=== PATIENT | male | born 1940 | race Caucasian/White ===

== ENCOUNTER 2019-11-27 12:02 | Day surgery (SDC) | payer MEDICARE ==
[~2019-11-27 12:02] MED LIST: Metoclopramide 10 MG/2 ML SDV IV PRN; Sodium Chloride 0.9% 1,000 ML IV SCH
[2019-11-27] MEDS ORDERED: Propofol 200 MG/20 ML SDV ONE (15:00)
--- NOTE | 2019-11-27 17:53 | OR ---
DATE OF OPERATION: 11/27/2019 SURGEON: Korey Piedra MD PREOPERATIVE DIAGNOSES: Melena and constipation. POSTOPERATIVE DIAGNOSES: Melena and constipation. PROCEDURE: EGD and colonoscopy. ANESTHESIA: MAC. ESTIMATED BLOOD LOSS: Minimal. COMPLICATIONS: None. INDICATION FOR THE PROCEDURE: The patient is a 79-year-old male who for the last month has had dark tarry stools as well as constipation. Last colonoscopy was about 8 years ago, was normal per the patient. No previous EGDs. Otherwise, denies any epigastric pain. Also complaining of severe constipation, however, this is resolved on new medication regimen. DESCRIPTION OF PROCEDURE: Informed consent was obtained from the patient. The patient was taken to the operating room, placed on the table in left lateral decubitus position. Monitored anesthesia care was administered. Esophagogastroscope was then advanced through the mouth into the second portion of the duodenum. Duodenum was normal. Gastric antrum did show some mild gastritis. Biopsy, this was taken for H pylori. Retroflexion performed in the stomach, was also otherwise unremarkable. Distal esophagus was also unremarkable. Esophagogastroscope was then withdrawn. We then turned our attention to the colonoscopy. Digital rectal exam was performed and it was normal. Colonoscope was then advanced through the anus, directed towards the cecum. Cecum was reached and identified by appendiceal orifice and ileocecal valve. Colonoscope was then slowly withdrawn. He did have some moderate, large and small diverticulosis in the sigmoid and descending colon. Did have a few small diverticula throughout the transverse and ascending colon as well. Otherwise, no polyps, no masses, no areas of ischemia or inflammation. No AV malformations identified. The rectum was also otherwise unremarkable. Colonoscope was then withdrawn. FINDINGS: Gastritis and diverticulosis. RECOMMENDATIONS: We will follow up on H pylori results. Otherwise, we would recommend H2 tito or PPI per primary care. We would not recommend any further screening colonoscopies due to age. Otherwise, continue on the current bowel regimen. CARLOS ENRIQUE/KYLIE /[id number] SAMEER
== END 2019-11-27 16:25 | disposition home or self-care (01) ==
LOC: LB.SDS 12:02
PROVIDERS: ATTEND Surgery
DX: K29.50 Unspecified chronic gastritis without bleeding (principal); K57.30 Diverticulosis of large intestine without perforation or abscess without bleeding; K21.9 Gastro-esophageal reflux disease without esophagitis; K31.89 Other diseases of stomach and duodenum; K92.1 Melena; K59.00 Constipation, unspecified; I25.10 Atherosclerotic heart disease of native coronary artery without angina pectoris; K27.9 Peptic ulcer, site unspecified, unspecified as acute or chronic, without hemorrhage or perforation; E83.119 Hemochromatosis, unspecified; Z98.890 Other specified postprocedural states; Z88.0 Allergy status to penicillin; Z79.82 Long term (current) use of aspirin; Z79.899 Other long term (current) drug therapy
CPT/HCPCS: 43239; 43246; 45378; 88305; G0121; J2704; U0002

== ENCOUNTER 2020-11-26 13:42 | Emergency (ER) | payer MEDICARE ==
[2020-11-26] MEDS ORDERED: Sodium Chloride 0.9% 10 ML Syringe FLUSH PRN (14:03)
[2020-11-26] MEDS ORDERED: Aspirin 81 MG Tab.Chew PO ONE (14:04)
--- NOTE | 2020-11-26 14:05 | EDM.PDOC ---
ED HPI GENERAL MEDICAL PROBLEM - General Chief Complaint: General Stated Complaint: DIZZINESS Time Seen by Provider: 11/26/20 14:00 Source of Information: Reports: Patient, EMS History Limitations: Reports: No Limitations - History of Present Illness INITIAL COMMENTS - FREE TEXT/NARRATIVE: patient presented to the ER with a c/o sudden onset of dizziness. Per report, he was using the computer, when he suddenly complained to his that he feels dizzy, and when he tried walking to the bathroom, he felt unsteady,, didn't pass out. No CP, SOB or palpitations. h/o CAD in the remote past so stents placement in 2001. h/o HTN for which he takes HCLZ and lisinopril and ASA 81mg. Upon arrival to the ER, denies CP, but reports mild dizziness still on/off. - Related Data Allergies Allergy/AdvReac Type Severity Reaction Status Date / Time Penicillins Allergy Cannot Verified 11/26/19 14:33 Remember Home Meds: Home Meds Aspirin [Meg Chewable] 81 mg PO DAILY 07/20/16 [History] Isosorbide Mononitrate [Isosorbide Mononitrate ER] 30 mg PO DAILY 07/20/16 [History] Lisinopril 20 mg PO BID 07/20/16 [History] atorvaSTATin Calcium [Atorvastatin Calcium] 40 mg PO QPM 07/20/16 [History] Brimonidine [Alphagan 0.2% Ophth Soln] 1 drop EYEBOTH BID 11/26/19 [History] Latanoprost 1 drop EYEBOTH BEDTIME 11/26/19 [History] Timolol Maleate 1 drop EYEBOTH BID 11/26/19 [History] hydroCHLOROthiazide [Hydrochlorothiazide] 12.5 mg PO DAILY 11/26/19 [History] Past Medical History HEENT History: Reports: Glaucoma, Impaired Vision Cardiovascular History: Reports: CAD, [place], Stents Other Cardiovascular History: [place] and stents 2001 Gastrointestinal History: Reports: Chronic Constipation Social & Family History - Family History Family Medical History: No Pertinent Family History - Caffeine Use Caffeine Use: Reports: Coffee ED ROS GENERAL - Review of Systems Review Of Systems: See Below Constitutional: Reports: No Symptoms HEENT: Reports: No Symptoms Respiratory: Reports: No Symptoms Cardiovascular: Reports: No Symptoms GI/Abdominal: Reports: No Symptoms Musculoskeletal: Reports: No Symptoms Skin: Reports: No Symptoms Neurological: Reports: Dizziness Psychiatric: Reports: No Symptoms ED EXAM, GENERAL - Physical Exam Exam: See Below Exam Limited By: No Limitations General Appearance: Alert, WD/WN, No Apparent Distress Eye Exam: Bilateral Eye: EOMI Respiratory/Chest: No Respiratory Distress, Lungs Clear Cardiovascular: Regular Rate, Rhythm GI/Abdominal: Normal Bowel Sounds, Soft Extremities: Normal Inspection Neurological: Alert, Oriented, No Motor/Sensory Deficits Skin Exam: Warm #1 Interpretation EKG Date: 11/26/20 Time: 14:02 Rhythm: NSR Rate (Beats/Min): 72 Kirk: Normal P-Wave: Present QRS: Normal ST-T: Normal QT: Normal #2 Interpretation EKG Date: 11/26/20 Time: 16:50 Rhythm: A-Fib Rate (Beats/Min): 140 P-Wave: Absent QRS: Normal ST-T: Normal QT: Normal Course - Vital Signs Last Recorded V/S: Last Vital Signs Temp 36.4 C 11/26/20 14:24 Pulse 70 11/26/20 17:02 Resp 16 11/26/20 14:24 BP 120/68 11/26/20 17:02 Pulse Ox 99 11/26/20 14:24 - Orders/Labs/Meds Orders: Active Orders 24 hr Category Date Time Status EKG Documentation Completion [RC] ASDIRECTED Care 11/26/20 14:04 Active EKG Documentation Completion [RC] ASDIRECTED Care 11/26/20 17:12 Ordered Chest 1V Frontal [CR] Stat Exams 11/26/20 14:03 Taken Head wo Cont [CT] Stat Exams 11/26/20 14:17 Taken Rivaroxaban [Xarelto] Med 11/26/20 17:18 Once 10 mg PO ONETIME ONE Sodium Chloride 0.9% [Normal Saline] 1,000 ml Med 11/26/20 14:30 Active IV ASDIRECTED Sodium Chloride 0.9% [Saline Flush] Med 11/26/20 14:03 Active 10 ml FLUSH ASDIRECTED PRN Saline Lock Insert [OM.PC] Routine Oth 11/26/20 14:03 Ordered EKG 12 Lead [EK] Routine Ther 11/26/20 17:12 Ordered Medication Orders Sodium Chloride (Normal Saline) 1,000 mls @ 999 mls/hr IV ASDIRECTED DONOVAN Last Admin: 11/26/20 14:42 Dose: 999 mls/hr Documented by: KARI Rivaroxaban (Rivaroxaban 10 Mg Tab) 10 mg PO ONETIME ONE Stop: 11/26/20 17:19 Sodium Chloride (Sodium Chloride 0.9% 10 Ml Syringe) 10 ml FLUSH ASDIRECTED PRN PRN Reason: Keep Vein Open Last Admin: 11/26/20 14:41 Dose: 10 ml Documented by: KARI Labs: Laboratory Tests 11/26/20 11/26/20 11/26/20 Range/Units 14:00 14:00 14:00 WBC 6.2 (4.0-11.0) K/uL RBC 3.98 L (4.50-6.50) M/uL Hgb 13.3 (13.0-18.0) g/dL Hct 39.3 L (40.0-54.0) % MCV 99 H (76-96) fL MCH 33.4 H (27.0-32.0) pg MCHC 33.8 (31.0-35.0) g/dL RDW 12.7 (11.0-16.0) % Plt Count 253 (150-400) K/uL MPV 10.5 H (6.0-10.0) fL D-Dimer, Quantitative 589 H (0-400) ng/mL Sodium 137 (136-145) mmol/L Potassium 3.7 (3.5-5.1) mmol/L Chloride 100 (98-107) mmol/L Carbon Dioxide 25.7 (21.0-32.0) mmol/L Anion Gap 15.0 (5.0-15.0) mmol/L BUN 15 (8-26) mg/dL Creatinine 0.82 (0.70-1.30) mg/dL Est Cr Clr Drug Dosing TNP Estimated GFR (MDRD) > 60 (>60) MLS/MIN BUN/Creatinine Ratio 18.3 (6-25) Glucose 160 H D (74-100) mg/dL Calcium 8.6 (8.5-10.1) mg/dL Troponin I < 0.017 (0.000-0.060) ng/mL Meds: Medications Generic Name Dose Route Start Last Admin Trade Name Freq PRN Reason Stop Dose Admin Sodium Chloride 1,000 mls @ 999 mls/hr 11/26/20 14:30 11/26/20 14:42 Normal Saline IV 999 mls/hr ASDIRECTED DONOVAN Administration Rivaroxaban 10 mg 11/26/20 17:18 Rivaroxaban 10 Mg Tab PO 11/26/20 17:19 ONETIME ONE Sodium Chloride 10 ml 11/26/20 14:03 11/26/20 14:41 Sodium Chloride 0.9% 10 Ml Syringe FLUSH 10 ml ASDIRECTED PRN Administration Keep Vein Open Discontinued Medications Generic Name Dose Route Start Last Admin Trade Name Freq PRN Reason Stop Dose Admin Aspirin 324 mg 11/26/20 14:04 11/26/20 14:33 Aspirin 81 Mg Tab.Chew PO 11/26/20 14:05 324 mg ONETIME ONE Administration Meclizine HCl 12.5 mg 11/26/20 14:55 11/26/20 15:04 Meclizine 12.5 Mg Tab PO 11/26/20 14:56 12.5 mg ONETIME ONE Administration Metoprolol Tartrate 25 mg 11/26/20 16:55 11/26/20 17:02 Metoprolol Tartrate 25 Mg Tab PO 11/26/20 16:56 25 mg ONETIME ONE Administration Ondansetron HCl 4 mg 11/26/20 14:55 11/26/20 15:07 Ondansetron 4 Mg Tab.Dis PO 11/26/20 14:56 4 mg ONETIME ONE Administration Rivaroxaban 10 mg 11/26/20 16:55 11/26/20 17:08 Rivaroxaban 10 Mg Tab PO 11/26/20 16:56 10 mg ONETIME ONE Administration - Re-Assessments/Exams Free Text/Narrative Re-Assessment/Exam: upon arrival to the ER - patient was connected to a monitor initial vitals - showed HR 68, BP 115/82, EKG NSR. labs were ordered - normal trop and normal CBC/BMP.. but mild elevation in ddimer 600. IVF was started given the dizziness - CT brain wo contrast was obtained - no e/o stroke or intracranial abnormalities - but showed diffuse encephalomalacia. While patient was connected on Tele - it was noted that he is getting into afib - with HR jumps to 140 for few moments before it return to NSR in 80's. this happened around 4 times within an hour span - he reports dizziness when this occurs. PO metoprolol 25mg was given, as well as blood thinner Xarelto 20mg PO 11/26/20 17:18 Given lack of adequate staffing in our facility - called [facility] - spoke with the hospitalist on-call who accepted the patient to his service Departure - Departure Time of Disposition: 17:19 Disposition: DC/Tfer to Acute Hospital 02 Condition: Fair Clinical Impression: Atrial fibrillation with RVR, Dizziness - Discharge Information *PRESCRIPTION DRUG MONITORING PROGRAM REVIEWED*: Not Applicable *COPY OF PRESCRIPTION DRUG MONITORING REPORT IN PATIENT ADAMA: Not Applicable Instructions: Atrial Fibrillation, [id number] Forms: ED Department Discharge Sepsis Event Note (ED) - Focused Exam Vital Signs: Vital Signs Temp Pulse Pulse Resp BP BP Pulse Ox 11/26/20 17:02 70 120/68 11/26/20 14:24 36.4 C 76 16 116/67 99 - Problem List & Annotations (1) Atrial fibrillation with RVR SNOMED Code(s): 237564238349389 Code(s): I48.91 - UNSPECIFIED ATRIAL FIBRILLATION Status: Acute Priority: Low (2) Dizziness SNOMED Code(s): 544769078, 696761312 Code(s): R42 - DIZZINESS AND GIDDINESS Status: Acute Priority: Low - Problem List Review Problem List Initiated/Reviewed/Updated: Yes - My Orders Last 24 Hours: My Active Orders 11/26/20 14:03 Chest 1V Frontal [CR] Stat Sodium Chloride 0.9% [Saline Flush] 10 ml FLUSH ASDIRECTED PRN Saline Lock Insert [OM.PC] Routine 11/26/20 14:04 EKG Documentation Completion [RC] ASDIRECTED 11/26/20 14:17 Head wo Cont [CT] Stat 11/26/20 14:30 Sodium Chloride 0.9% [Normal Saline] 1,000 ml IV ASDIRECTED 11/26/20 17:12 EKG Documentation Completion [RC] ASDIRECTED EKG 12 Lead [EK] Routine 11/26/20 17:18 Rivaroxaban [Xarelto] 10 mg PO ONETIME ONE - Assessment/Plan Last 24 Hours: My Active Orders 11/26/20 14:03 Chest 1V Frontal [CR] Stat Sodium Chloride 0.9% [Saline Flush] 10 ml FLUSH ASDIRECTED PRN Saline Lock Insert [OM.PC] Routine 11/26/20 14:04 EKG Documentation Completion [RC] ASDIRECTED 11/26/20 14:17 Head wo Cont [CT] Stat 11/26/20 14:30 Sodium Chloride 0.9% [Normal Saline] 1,000 ml IV ASDIRECTED 11/26/20 17:12 EKG Documentation Completion [RC] ASDIRECTED EKG 12 Lead [EK] Routine 11/26/20 17:18 Rivaroxaban [Xarelto] 10 mg PO ONETIME ONE Plan: - will start on BB and blood thinners - tele monitoring - transfer to a higher level of care [facility] in [place] by EMS
[2020-11-26] MEDS ORDERED: Sodium Chloride 0.9% 1,000 ML IV SCH (14:30)
[2020-11-26] MEDS ORDERED: Meclizine 12.5 MG Tab PO ONE (14:55)
[2020-11-26] MEDS ORDERED: Ondansetron 4 MG Tab.DIS PO ONE (14:55)
[2020-11-26] MEDS ORDERED: Rivaroxaban 10 MG Tab PO ONE ×2 (16:55→17:18)
[2020-11-26] MEDS ORDERED: Metoprolol Tartrate 25 MG Tab PO ONE (16:55)
--- NOTE | 2020-11-27 07:21 | CT ---
Date of Service: 11/26/20 Clinical Data: dizziness UNENHANCED BRAIN CT: Multislice acquisition through the brain without IV contrast was performed. Comparison is made to a prior exam dated 01/19/11. There is diffuse atrophy. There are periventricular lucencies bilaterally consistent with small vessel ischemic change. No masses or mass effect. No intracranial hemorrhage. No evidence of acute or subacute infarct. There is fluid within the ethmoid sinuses consistent with sinus disease. No osseous abnormalities. [id number] [facility] [place]
--- NOTE | 2020-11-27 07:29 | CR ---
Date of Service: 11/26/20 Clinical Data: CP AP CHEST: The patient is in an apical lordotic position. Comparison is made to a prior exam dated 07/18/16. The heart size is normal. The aorta is calcified and ectatic. 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 The lungs are clear. No pneumothorax. No pleural effusions. No evidence of acute intrathoracic disease. [id number] [facility]
== END 2020-11-26 17:45 ==
LOC: LB.ED 13:42
DX: R42 Dizziness and giddiness (principal); I48.91 Unspecified atrial fibrillation; I25.10 Atherosclerotic heart disease of native coronary artery without angina pectoris; I25.2 Old myocardial infarction; Z95.5 Presence of coronary angioplasty implant and graft; Z79.82 Long term (current) use of aspirin; Z79.899 Other long term (current) drug therapy; Z88.0 Allergy status to penicillin
CPT/HCPCS: 36415; 70450; 71045; 80048; 84484; 85027; 85379; 93005; 93010; 99284; 99285-25; A0425; A0429; A9270-GY; J7030

== ENCOUNTER 2021-10-29 02:02 | Emergency (ER) | payer MEDICARE ==
[2021-10-29 03:09] LABS: TROPONIN I HIGH SENSITIVITY 12.3 pg/ml (<=60.4)
== END 2021-10-29 03:50 | disposition home or self-care (01) ==
LOC: LB.ED 02:02
DX: R61 Generalized hyperhidrosis (principal); R11.2 Nausea with vomiting, unspecified; I48.91 Unspecified atrial fibrillation; I25.2 Old myocardial infarction; Z88.0 Allergy status to penicillin; Z79.82 Long term (current) use of aspirin; Z79.899 Other long term (current) drug therapy
CPT/HCPCS: 36415; 71045; 80053; 81001; 84443; 84484; 85025; 85610; 93005; 93246; 93247; 99284-25; A0425; A0429

== ENCOUNTER 2024-11-05 11:15 | Emergency (ER) | payer MEDICARE ==
[2024-11-05] MEDS: Ondansetron 4 MG/2 ML SDV IVPUSH ONE (11:25)
[2024-11-05] MEDS: Sodium Chloride 0.9% 1,000 ML IV ONE (11:30)
[2024-11-05] MEDS: Diltiazem 50 MG/10 ML SDV IVPUSH ONE (11:32)
[2024-11-05 12:07] LABS: BASOPHILS ABSOLUTE AUTO 0.03 K/uL (0.02-0.10); BASOPHILS PERCENT AUTO 0.4 % (0.0-0.5); EOSINOPHILS ABSOLUTE AUTO 0.28 K/uL (0.04-0.40); EOSINOPHILS PERCENT AUTO 3.6 % (1.0-5.0); HEMATOCRIT 45.7 % (40.0-54.0); HEMOGLOBIN 15.4 g/dL (13.0-18.0); LYMPHOCYTES ABSOLUTE AUTO 1.73 K/uL (1.50-4.00); MEAN CORPUSCULAR HEMOGLOBIN 32.6 pg (27.0-32.0); MEAN CORPUSCULAR HGB CONC 33.7 g/dL (31.0-35.0); MEAN CORPUSCULAR VOLUME 97 fL (76-96); MEAN PLATELET VOLUME 10.9 fL (6.0-10.0); MONOCYTES ABSOLUTE AUTO 0.56 K/uL (0.20-0.80); MONOCYTES PERCENT AUTO 7.1 % (3.0-10.0); NEUTROPHILS ABSOLUTE AUTO 5.26 K/uL (2.00-7.50); NEUTROPHILS PERCENT AUTO 66.9 % (45.0-70.0); PLATELET COUNT,PLT 250 K/uL (150-400); RED BLOOD CELL COUNT 4.73 M/uL (4.50-6.50); RED CELL DISTRIBUTION WIDTH 13.1 % (11.0-16.0); WHITE BLOOD CELL COUNT,WBC 7.9 K/uL (4.0-11.0)
[2024-11-05 12:24] LABS: A/G RATIO 1.2 (0.8-2.0); ALBUMIN 3.5 g/dL (3.4-5.0); ANION GAP 17.2 mmol/L (5.0-15.0); BUN/CREATININE RATIO 17.3 (6-25); CALCIUM 8.8 mg/dL (8.5-10.1); CARBON DIOXIDE,CO2 23.9 mmol/L (21.0-32.0); CREATININE 0.98 mg/dL (0.70-1.30); EST CRCL DRUG DOSING (CG) 60.01 mL/min; MAGNESIUM 1.7 mg/dL (1.8-2.4); POTASSIUM,K 4.1 mmol/L (3.5-5.1); PROTEIN TOTAL,TP 6.4 g/dL (6.4-8.2); TROPONIN I HIGH SENSITIVITY 12.2 pg/ml (<=60.4)
[2024-11-05 12:26] LABS: C-REACTIVE PROTEIN < 5.0 mg/L (<5.0)
[2024-11-05 12:51] LABS: INR 3.4 (1.0-3.5); PTT,PARTIAL THROMBOPLSTIN TIME 33.9 SECONDS (24.4-33.2)
[2024-11-05 12:54] LABS: PROTHROMBIN TIME 32.8 sec (9.0-11.5)
[2024-11-05] MEDS: Magnesium Sulfat/D5W 1GM/100ML 1 GM in Premix Bag 1 BAG IV ONE (12:55)
[2024-11-05 16:31] LABS: APPEARANCE,URINE CLEAR (CLEAR); COLOR,URINE YELLOW; GLUCOSE,URINE NEGATIVE (NEGATIVE); PH,URINE 6.5 (5.0-8.0); PROTEIN,URINE 30 mg/dL (NEGATIVE)
[2024-11-05 16:32] LABS: BILIRUBIN,URINE NEGATIVE (NEGATIVE); KETONES,URINE 15 mg/dL (NEGATIVE); LEUKOCYTE ESTERASE,URINE NEGATIVE (NEGATIVE); NITRITE,URINE NEGATIVE (NEGATIVE); OCCULT BLOOD,URINE TRACE-INTACT (NEGATIVE); SQUAMOUS EPITHELIAL CELLS,UR OCCASIONAL /HPF
== END 2024-11-05 17:20 | disposition home or self-care (01) ==
LOC: LB.ED 11:15
DX: R00.2 Palpitations (principal); R53.1 Weakness; Z88.0 Allergy status to penicillin; I48.91 Unspecified atrial fibrillation; I25.10 Atherosclerotic heart disease of native coronary artery without angina pectoris; I25.2 Old myocardial infarction; Z95.5 Presence of coronary angioplasty implant and graft; Z79.01 Long term (current) use of anticoagulants; Z79.899 Other long term (current) drug therapy
CPT/HCPCS: 36415; 71045; 80053; 81001; 83605; 83735; 84443; 84484; 85025; 85610; 85730; 86140; 93005; 96361; 96365; 96375; 99285; J2405; J3475; J3490; J7030; 93010; 99284; A0425; A0429

== ENCOUNTER 2024-11-11 11:34 | Observation (INO) | payer MEDICARE ==
[2024-11-11] MEDS ORDERED: Sodium Chloride 0.9% 10 ML Syringe FLUSH PRN (11:45)
[2024-11-11 11:56] LABS: HEMATOCRIT 48.8 % (40.0-54.0); HEMOGLOBIN 16.1 g/dL (13.0-18.0); MEAN CORPUSCULAR HEMOGLOBIN 32.3 pg (27.0-32.0); MEAN PLATELET VOLUME 10.3 fL (6.0-10.0); RED BLOOD CELL COUNT 4.98 M/uL (4.50-6.50); RED CELL DISTRIBUTION WIDTH 13.7 % (11.0-16.0); WHITE BLOOD CELL COUNT,WBC 4.8 K/uL (4.0-11.0)
[2024-11-11] MEDS: Metoprolol Tartrate 25 MG Tab PO ONE (12:28)
[2024-11-11] MEDS: Lactated Ringers 1,000 ML IV SCH (12:41)
[2024-11-11 12:46] LABS: ANION GAP 7.3 mmol/L (5.0-15.0); BUN/CREATININE RATIO 19.6 (6-25); CALCIUM 8.9 mg/dL (8.5-10.1); CARBON DIOXIDE,CO2 28.8 mmol/L (21.0-32.0); CREATININE 0.97 mg/dL (0.70-1.30); EST CRCL DRUG DOSING (CG) 56.8 mL/min; MAGNESIUM 1.8 mg/dL (1.8-2.4); PHOSPHORUS 3.7 mg/dL (2.5-4.9); POTASSIUM,K 4.1 mmol/L (3.5-5.1); TROPONIN I HIGH SENSITIVITY 15.5 pg/ml (<=60.4)
[2024-11-11 12:52] LABS: PROTHROMBIN TIME 29.7 sec (9.0-11.5)
[2024-11-11] MEDS ORDERED: Warfarin 2 MG Tab PO SCH (13:15)
[2024-11-11] MEDS: Diltiazem 120 MG Cap.CD PO ONE (17:12)
[2024-11-11] MEDS: Brimonidine 0.2% Ophth Soln 5 ML Bottle EYEBOTH SCH (18:10)
[2024-11-11] MEDS: Simvastatin 40 MG Tab PO SCH (19:21)
[2024-11-11] MEDS: Timolol Maleate 0.5% Ophth Soln 5 ML Bottle EYEBOTH SCH (19:26)
[2024-11-11] MEDS ORDERED: [UNRECOGNIZED DRUG - OTHER] EYEBOTH SCH (20:00)
[2024-11-11] MEDS: Latanoprost 0.005% Ophth Soln 2.5 ML Bottle EYEBOTH SCH (21:51)
[2024-11-12] MEDS: Warfarin 2 MG Tab PO SCH (07:28)
[2024-11-12 08:45] LABS: APPEARANCE,URINE CLEAR (CLEAR); BILIRUBIN,URINE NEGATIVE (NEGATIVE); GLUCOSE,URINE NEGATIVE (NEGATIVE); KETONES,URINE TRACE mg/dL (NEGATIVE); LEUKOCYTE ESTERASE,URINE NEGATIVE (NEGATIVE); NITRITE,URINE NEGATIVE (NEGATIVE); OCCULT BLOOD,URINE TRACE-INTACT (NEGATIVE); PROTEIN,URINE TRACE mg/dL (NEGATIVE)
[2024-11-12 08:54] LABS: COLOR,URINE OTHER; RBC,URINE 20-30 /HPF; SQUAMOUS EPITHELIAL CELLS,UR RARE /HPF; WBC,URINE 0-5 /HPF
[2024-11-12] MEDS: Nitrofurantoin Macrocrystal 50 MG Cap PO ONE (10:13)
== END 2024-11-12 10:20 | disposition home or self-care (01) ==
LOC: LB.ED 11:34 → LB.MS 13:01
PROVIDERS: ADMIT Surgery; ATTEND Surgery
DX: I48.91 Unspecified atrial fibrillation (principal); I25.10 Atherosclerotic heart disease of native coronary artery without angina pectoris; G30.9 Alzheimer's disease, unspecified; F02.80 Dementia in other diseases classified elsewhere, unspecified severity, without behavioral disturbance, psychotic disturbance, mood disturbance, and anxiety; Z79.01 Long term (current) use of anticoagulants; Z79.899 Other long term (current) drug therapy
CPT/HCPCS: 36415; 71045; 80048; 81001; 83735; 83880; 84100; 84484; 85027; 85610; 93005; 96360; 99285; A9270; J7120; 93010; 96361; 99223; 99239; G0378

== ENCOUNTER 2025-01-05 20:57 | Inpatient (IN) | payer MEDICARE ==
[2025-01-05] MEDS ORDERED: Sodium Chloride 0.9% 10 ML Syringe FLUSH PRN (21:13)
[2025-01-05 21:55] LABS: MEAN PLATELET VOLUME 10.7 fL (6.0-10.0); PLATELET COUNT,PLT 222.0 K/uL (150-400); RED BLOOD CELL COUNT 4.57 M/uL (4.50-6.50); RED CELL DISTRIBUTION WIDTH 14.1 % (11.0-16.0); WHITE BLOOD CELL COUNT,WBC 7.1 K/uL (4.0-11.0)
[2025-01-05 22:12] LABS: BLOOD UREA NITROGEN,BUN 19.0 mg/dL (8-26); CARBON DIOXIDE,CO2 25.0 mmol/L (21.0-32.0); CHLORIDE,CL 106.0 mmol/L (98-107); CREATININE 1.01 mg/dL (0.70-1.30); EST CRCL DRUG DOSING (CG) 54.55 mL/min; ESTIMATED GFR 74.0 mL/min (>60); GLUCOSE RANDOM 118.0 mg/dL (74-100); POTASSIUM,K 3.9 mmol/L (3.5-5.1); SODIUM,NA 142.0 mmol/L (136-145); TROPONIN I HIGH SENSITIVITY 18.1 pg/ml (<=60.4)
[2025-01-05 22:34] LABS: INR 2.0 (1.0-3.5)
[2025-01-06 06:11] LABS: APPEARANCE,URINE CLOUDY (CLEAR); GLUCOSE,URINE NEGATIVE (NEGATIVE); OCCULT BLOOD,URINE NEGATIVE (NEGATIVE)
[2025-01-06 06:18] LABS: FINE GRANULAR CASTS,URINE OCCASIONAL /HPF; SQUAMOUS EPITHELIAL CELLS,UR OCCASIONAL /HPF
[2025-01-06] MEDS: [UNRECOGNIZED DRUG - OTHER] EYEBOTH SCH (07:37)
[2025-01-06 09:01] LABS: BLOOD UREA NITROGEN,BUN 16.0 mg/dL (8-26); CARBON DIOXIDE,CO2 29.4 mmol/L (21.0-32.0); CHLORIDE,CL 107.0 mmol/L (98-107); CREATININE 0.82 mg/dL (0.70-1.30); EST CRCL DRUG DOSING (CG) 67.2 mL/min; ESTIMATED GFR 88.0 mL/min (>60); GLUCOSE RANDOM 98.0 mg/dL (74-100); POTASSIUM,K 3.8 mmol/L (3.5-5.1); SODIUM,NA 142.0 mmol/L (136-145)
[2025-01-07] MEDS ORDERED: Sodium Chloride 0.9%, Bacteriostatic 10 ML MDV IV ONE (04:30)
[2025-01-07 11:05] LABS: TROPONIN I HIGH SENSITIVITY 20.0 pg/ml (<=60.4)
[2025-01-08] MEDS ORDERED: Timolol Maleate 0.5% Ophth Soln 5 ML Bottle EYEBOTH SCH (20:00)
== END 2025-01-08 12:15 | disposition home or self-care (01) | DRG 57 ==
LOC: LB.ED 20:57 → LB.MS 22:20 → UNDOADMOB 22:20 → LB.MS 22:51 → INTOOBSV 01-06 17:30 → OBSVTOIN 01-06 17:30 → LB.MS 01-08 08:53
PROVIDERS: ADMIT Surgery; ATTEND Surgery
DX: G20.B1 Parkinson's disease with dyskinesia, without mention of fluctuations (principal); F02.811 Dementia in other diseases classified elsewhere, unspecified severity, with agitation; F02.84 Dementia in other diseases classified elsewhere, unspecified severity, with anxiety; I48.91 Unspecified atrial fibrillation; I25.10 Atherosclerotic heart disease of native coronary artery without angina pectoris; H91.90 Unspecified hearing loss, unspecified ear; H54.7 Unspecified visual loss; K59.09 Other constipation; G30.9 Alzheimer's disease, unspecified; N40.0 Benign prostatic hyperplasia without lower urinary tract symptoms; Z79.01 Long term (current) use of anticoagulants; Z79.899 Other long term (current) drug therapy; Z88.0 Allergy status to penicillin; I25.2 Old myocardial infarction; Z95.5 Presence of coronary angioplasty implant and graft; Z98.890 Other specified postprocedural states
CPT/HCPCS: 36415 ×2; 51798; 70450; 80048 ×2; 81001; 83735; 84484; 85027; 85610; 93005; 97161; 99285; A0425; A0428; A9270 ×4; J7030; 51701; 86140; 97110-GP; 97165-GO; G0378; J7040

== ENCOUNTER 2025-02-15 12:22 | Observation (INO) | payer MEDICARE ==
[2025-02-15 12:46] LABS: BASOPHILS ABSOLUTE AUTO 0.01 K/uL (0.02-0.10); BASOPHILS PERCENT AUTO 0.2 % (0.0-0.5); EOSINOPHILS ABSOLUTE AUTO 0.00 K/uL (0.04-0.40); EOSINOPHILS PERCENT AUTO 0.0 % (1.0-5.0); LYMPHOCYTES ABSOLUTE AUTO 0.39 K/uL (1.50-4.00); LYMPHOCYTES PERCENT AUTO 7.7 % (20.0-40.0); MEAN PLATELET VOLUME 10.3 fL (6.0-10.0); MONOCYTES ABSOLUTE AUTO 0.89 K/uL (0.20-0.80); MONOCYTES PERCENT AUTO 17.6 % (3.0-10.0); NEUTROPHILS ABSOLUTE AUTO 3.76 K/uL (2.00-7.50); NEUTROPHILS PERCENT AUTO 74.5 % (45.0-70.0); PLATELET COUNT,PLT 202 K/uL (150-400); RED BLOOD CELL COUNT 4.77 M/uL (4.50-6.50); RED CELL DISTRIBUTION WIDTH 14.0 % (11.0-16.0); WHITE BLOOD CELL COUNT,WBC 5.1 K/uL (4.0-11.0)
[2025-02-15 13:09] LABS: A/G RATIO 1.0 (0.8-2.0); ALANINE AMINOTRANSFERASE,ALT 34 U/L (12-78); ASPARTATE AMNIOTRANSFERASE,AST 80 U/L (15-37); BILIRUBIN TOTAL 1.8 mg/dL (0.0-1.0); BLOOD UREA NITROGEN,BUN 20 mg/dL (8-26); CARBON DIOXIDE,CO2 26.3 mmol/L (21.0-32.0); CHLORIDE,CL 101 mmol/L (98-107); CREATININE 1.08 mg/dL (0.70-1.30); ESTIMATED GFR 69 mL/min (>60); GLUCOSE RANDOM 97 mg/dL (74-100); POTASSIUM,K 3.7 mmol/L (3.5-5.1); PROTEIN TOTAL,TP 7.1 g/dL (6.4-8.2); SODIUM,NA 139 mmol/L (136-145)
[2025-02-15 13:12] LABS: INR 1.3 (1.0-3.5); PTT,PARTIAL THROMBOPLSTIN TIME 27.4 SECONDS (24.4-33.2)
[2025-02-15 13:15] LABS: PRO B-TYPE NATRIUR PEPT,BNPPRO 3081.0 pg/mL (0-450); TROPONIN I HIGH SENSITIVITY 50.2 pg/ml (<=60.4)
[2025-02-15] MEDS: Metoprolol Tartrate 5 MG/5 ML SDV IVPUSH ONE (13:19)
[2025-02-15] MEDS ORDERED: Sodium Chloride 0.9% 10 ML Syringe FLUSH PRN (13:48)
[2025-02-15 14:29] LABS: APPEARANCE,URINE CLEAR (CLEAR); GLUCOSE,URINE NEGATIVE (NEGATIVE); OCCULT BLOOD,URINE TRACE-INTACT (NEGATIVE)
[2025-02-15] MEDS ORDERED: Non-Formulary Medication 1 Each (Warfarin [Coumadin] 2 MG Tablet) PO SCH (15:30)
[2025-02-15] MEDS: Lactated Ringers 1,000 ML IV SCH (16:54)
[2025-02-15] MEDS: Non-Formulary Medication 1 Each (Warfarin [Coumadin] 2 MG Tablet) PO SCH (18:34)
[2025-02-15] MEDS: Diltiazem 25 MG/5 ML SDV IVPUSH ONE (18:35)
[2025-02-15] MEDS: Non-Formulary Medication 1 Each (Simvastatin [Simvastatin] 40 MG Tablet) PO SCH (19:21)
[2025-02-15] MEDS: TIMOLOL MALEATE EYEBOTH SCH (19:22)
[2025-02-15] MEDS: Non-Formulary Medication 1 Each (Latanoprost [Xalatan 0.005% Ophth Soln] 2.5 ML Bottle) EYEBOTH SCH (19:22)
[2025-02-16 08:00] LABS: BASOPHILS ABSOLUTE AUTO 0.01 K/uL (0.02-0.10); BASOPHILS PERCENT AUTO 0.3 % (0.0-0.5); EOSINOPHILS ABSOLUTE AUTO 0.01 K/uL (0.04-0.40); EOSINOPHILS PERCENT AUTO 0.3 % (1.0-5.0); LYMPHOCYTES ABSOLUTE AUTO 0.85 K/uL (1.50-4.00); LYMPHOCYTES PERCENT AUTO 21.9 % (20.0-40.0); MEAN PLATELET VOLUME 10.3 fL (6.0-10.0); MONOCYTES ABSOLUTE AUTO 0.60 K/uL (0.20-0.80); MONOCYTES PERCENT AUTO 15.4 % (3.0-10.0); NEUTROPHILS ABSOLUTE AUTO 2.42 K/uL (2.00-7.50); NEUTROPHILS PERCENT AUTO 62.1 % (45.0-70.0); PLATELET COUNT,PLT 167 K/uL (150-400); RED BLOOD CELL COUNT 4.31 M/uL (4.50-6.50); RED CELL DISTRIBUTION WIDTH 14.1 % (11.0-16.0); WHITE BLOOD CELL COUNT,WBC 3.9 K/uL (4.0-11.0)
[2025-02-16 08:16] LABS: BLOOD UREA NITROGEN,BUN 15.0 mg/dL (8-26); CARBON DIOXIDE,CO2 25.4 mmol/L (21.0-32.0); CHLORIDE,CL 103.0 mmol/L (98-107); CREATININE 0.79 mg/dL (0.70-1.30); EST CRCL DRUG DOSING (CG) 55.68 mL/min; ESTIMATED GFR 89.0 mL/min (>60); GLUCOSE RANDOM 77.0 mg/dL (74-100); POTASSIUM,K 3.9 mmol/L (3.5-5.1); SODIUM,NA 138.0 mmol/L (136-145)
[2025-02-16] MEDS: BRIMONIDINE EYEBOTH SCH (08:33)
[2025-02-16] MEDS: Non-Formulary Medication 1 Each (Metoprolol Succinate [Toprol Xl] 25 MG Tab.Er) PO SCH (08:33)
[2025-02-16 09:53] LABS: INR 1.3 (1.0-3.5)
[2025-02-16 10:21] LABS: APPEARANCE,URINE CLOUDY (CLEAR); GLUCOSE,URINE NEGATIVE (NEGATIVE); OCCULT BLOOD,URINE LARGE (NEGATIVE)
== END 2025-02-16 13:27 ==
LOC: LB.ED 12:22 → UNDOADMOB 15:18 → LB.MS 15:18
PROVIDERS: ADMIT Physician Assistant; ATTEND Physician Assistant
DX: R53.1 Weakness (principal); R41.0 Disorientation, unspecified; I48.91 Unspecified atrial fibrillation; G30.1 Alzheimer's disease with late onset; I25.10 Atherosclerotic heart disease of native coronary artery without angina pectoris; R29.6 Repeated falls; Z88.0 Allergy status to penicillin; Z79.01 Long term (current) use of anticoagulants; Z79.899 Other long term (current) drug therapy
CPT/HCPCS: 36415; 51702; 70450; 71045; 71250; 74176; 80048; 80053; 81001; 82947; 83605; 83735; 83880; 84484; 85025; 85610; 85730; 93005; 93010; 99223; 99238; A0425; A0428; A9270-GY; C1758; J0282; J1163; J1650; J3490; J7030; J7060; J7120

== ENCOUNTER 2025-03-02 14:11 | Inpatient (IN) | payer SELFPAY ==
[2025-03-02] MEDS ORDERED: Glycopyrrolate 0.2 MG/ML 2 ML SDV PRN (16:23)
[2025-03-02] MEDS ORDERED: Sennosides/Docusate Sodium 50-8.6 MG Tab PO PRN (16:43)
[2025-03-02] MEDS: MORPHINE CONCENTRATE PO SCH (17:43)
[2025-03-03] MEDS: MORPHINE CONCENTRATE PO PRN (07:41)
[2025-03-06] MEDS: GLYCOPYRROLATE 1 MG PO PRN (17:08)
== END 2025-03-08 01:50 | disposition expired | DRG 951 ==
LOC: LB.MS 15:20 → UNDOADMIN 15:26 → LB.MS 15:26
PROVIDERS: ADMIT Surgery; ATTEND Surgery
DX: Z51.5 Encounter for palliative care (principal); Z66 Do not resuscitate; G30.9 Alzheimer's disease, unspecified; F02.80 Dementia in other diseases classified elsewhere, unspecified severity, without behavioral disturbance, psychotic disturbance, mood disturbance, and anxiety; G20.A1 Parkinson's disease without dyskinesia, without mention of fluctuations; I48.91 Unspecified atrial fibrillation; I25.10 Atherosclerotic heart disease of native coronary artery without angina pectoris; I25.2 Old myocardial infarction; Z95.5 Presence of coronary angioplasty implant and graft; Z79.01 Long term (current) use of anticoagulants; Z79.899 Other long term (current) drug therapy; Z88.0 Allergy status to penicillin
CPT/HCPCS: A9270-GY